=== PATIENT | male | born 1980 | race Caucasian/White ===

== ENCOUNTER 2021-02-01 11:28 | Emergency (ER) | payer OTHER ==
[2021-02-01 11:46] VITALS: BP 144/94; PULSE 86; TEMP 98.3; BMI 29.4
[2021-02-01] MEDS ORDERED: IBUPROFEN 600 MG TABLET (FP) PO ONE ×2 (11:48→12:05)
== END 2021-02-01 12:44 | disposition home or self-care (01) ==
LOC: FER 11:28
DX: S89.92XA Unspecified injury of left lower leg, initial encounter (principal)
CPT/HCPCS: 73562-TC-LT-FY; 99283-25

== ENCOUNTER 2021-04-06 11:53 | Emergency (ER) | payer OTHER ==
[2021-04-06 12:02] VITALS: BP 127/88; PULSE 94; TEMP 99.1; BMI 30.1
== END 2021-04-06 12:37 | disposition home or self-care (01) ==
LOC: FER 11:53
DX: T59.3X3A Toxic effect of lacrimogenic gas, assault, initial encounter (principal)
CPT/HCPCS: 99281-25

== ENCOUNTER 2025-06-03 12:48 | Emergency (ER) | payer OTHER ==
[2025-06-03 13:16] VITALS: BP 135/86; PULSE 88; RESP 16; TEMP 98.4; BMI 29.4
[2025-06-03] MEDS ORDERED: DIPHTH,PERTUSS(ACELL),TET 0.5 ML DISP.SYRIN IM ONE (13:23)
[2025-06-03] MEDS: DIPHTH,PERTUSS(ACELL),TET 0.5 ML DISP.SYRIN IM ONE (13:29)
== END 2025-06-03 13:57 | disposition home or self-care (01) ==
LOC: FER 12:48
PROC: 3E0234Z Introduction of Serum, Toxoid and Vaccine into Muscle, Percutaneous Approach (ICD-10-PCS; principal; 2025-06-03)
DX: S61.212A Laceration without foreign body of right middle finger without damage to nail, initial encounter (principal); Z23 Encounter for immunization; Y35.811A Legal intervention involving manhandling, law enforcement official injured, initial encounter
CPT/HCPCS: 90715; 99284-25